=== PATIENT | male | born 1980 | race Caucasian/White ===

== ENCOUNTER 2017-03-16 23:50 | Inpatient (IN) | payer BC ==
[~2017-03-16] VITALS: Ht 188 cm; Wt 174.6 kg
[2017-03-16 23:53] VITALS: BP_SYST 189
[2017-03-17] MEDS ORDERED: LIDOCAINE VISCOUS 2%, 15 ML UDC MM ONE (00:15)
[2017-03-17] MEDS ORDERED: MORPHINE 2 MG/ML INJ. SYRINGE IM ONE (00:30)
[2017-03-17] MEDS ORDERED: fentaNYL CITRATE/PF 100 MCG/2 ML AMP IM ONE (01:30)
[2017-03-17] MEDS ORDERED: NACL 0.9% 1,000 ML IV ONE (02:15)
[2017-03-17] MEDS ORDERED: fentaNYL CITRATE/PF 100 MCG/2 ML AMP IVP ONE (02:15)
[2017-03-17] MEDS ORDERED: PIPERACILLIN/TAZO 3.375 GM in NS 50 ML IV ONE (02:15)
[2017-03-17] MEDS ORDERED: PIPERACILLIN/TAZOBACTAM 3.375 GM/VIAL (ZOSYN) IV ONE (02:40)
[2017-03-17 02:47] LABS: BASOPHILS # (AUTO) 0.2 K/uL (0.0-0.2); BASOPHILS % (AUTO) 1.8 % (0.0-2.0); EOSINOPHILS # (AUTO) 0.1 K/uL (0.0-0.4); EOSINOPHILS % (AUTO) 0.5 % (0.0-4.0); HEMATOCRIT 49.2 % (36-54); HEMOGLOBIN 16.5 g/dL (14.0-18.0); LYMPHOCYTES # (AUTO) 1.5 K/uL (1.0-5.5); LYMPHOCYTES % (AUTO) 11.7 % (20.5-51.5); MEAN CORPUSCULAR HEMOGLOBIN 30 pg (27-31); MEAN CORPUSCULAR HGB CONC 34 % (32-36); MEAN CORPUSCULAR VOLUME 88 fL (79.0-98.0); MONOCYTES # (AUTO) 0.8 K/uL (0.0-1.0); NEUTROPHILS # (AUTO) 10.4 K/uL (1.8-7.7); PLATELET COUNT (AUTO) 267 K/uL (130-430); RED BLOOD CELL COUNT(AUTO) 5.56 MIL/uL (4.2-6.2)
[2017-03-17] MEDS ORDERED: NACL 0.9% 1,000 ML IV SCH (02:50)
[2017-03-17 02:56] LABS: CALCIUM 9.6 mg/dL (8.4-11.0); CREATININE 0.98 mg/dL (0.55-1.30); POTASSIUM 4.1 mmol/L (3.5-5.1)
[2017-03-17 02:59] LABS: INR 1.1 (0.80-1.20); PROTHROMBIN TIME 10.7 SECS (9.5-12.5)
[2017-03-17] MEDS ORDERED: HYDR-1189 PO (02:59)
[2017-03-17] MEDS ORDERED: IBUP-1480 PO (02:59)
[2017-03-17 03:12] LABS: ALBUMIN 4.2 g/dL (3.4-4.8); TOTAL BILIRUBIN 2.2 mg/dL (0.0-1.0)
[2017-03-17 03:14] VITALS: BP_SYST 163
[2017-03-17] MEDS ORDERED: VANCOMYCIN HCL 1,000 MG in NS 250 ML IV ONE (04:00)
[2017-03-17] MEDS ORDERED: VANCOMYCIN HCL 1000 MG/VIAL IV ONE (04:00)
[2017-03-17] MEDS ORDERED: MORPHINE 2 MG/ML INJ. SYRINGE IVP PRN ×3 (04:15→09:15)
[2017-03-17] MEDS ORDERED: MORPHINE 2 MG/ML INJ. SYRINGE ONE (04:16)
[2017-03-17] MEDS ORDERED: MORPHINE 4 MG/ML INJ. SYRINGE ONE (06:44)
[2017-03-17] MEDS: MORPHINE 4 MG/ML INJ. SYRINGE IVP PRN ×5 (07:33→23:50)
[2017-03-17] MEDS ORDERED: ZOLPIDEM TARTRATE 5 MG TABLET PO PRN (09:15)
[2017-03-17] MEDS ORDERED: LORazepam 2 MG/ML VIAL IVP PRN (09:15)
[2017-03-17] MEDS ORDERED: HYDROmorphone 2 MG/ML VIAL IVP PRN (09:15)
[2017-03-17] MEDS ORDERED: DOCUSATE SODIUM 100 MG CAPSULE PO PRN (09:15)
[2017-03-17] MEDS ORDERED: ACETAMINOPHEN 325 MG TABLET PO PRN (09:15)
[2017-03-17] MEDS ORDERED: ONDANSETRON HCL 4 MG/2 ML VIAL IVP PRN (09:15)
[2017-03-17] MEDS ORDERED: POTASSIUM CHLORIDE 20 MEQ TAB.PRT.SR PO PRN (09:15)
[2017-03-17] MEDS ORDERED: DEXTROSE 50% JECT 50 ML DISP.SYRIN IVP PRN (09:15)
[2017-03-17] MEDS: PIPERACILLIN/TAZO 3.375/DEX-IS 50 ML IV SCH ×4 (09:15→23:49)
[2017-03-17] MEDS ORDERED: MAGNESIUM SULFATE 50 ML IV PRN (09:15)
[2017-03-17] MEDS ORDERED: D5NS 1,000 ML IV SCH (10:15)
[2017-03-17] MEDS ORDERED: METOPROLOL TARTRATE 50 MG TABLET PO ONE (10:30)
[2017-03-17] MEDS: NACL 0.9% 1,000 ML IV SCH ×2 (10:30→20:56)
[2017-03-17] MEDS: INSULIN ASPART 100 UNITS/ML, 10 ML VIAL (NovoLOG) SUBCUT PRN ×3 (12:12→20:42)
[2017-03-17 12:50] VITALS: BP_SYST 146
[2017-03-17] MEDS: CLINDAMYCIN 600 MG in D5W 50 ML IV SCH ×3 (12:50→23:48)
[2017-03-17] MEDS: VANCOMYCIN HCL 2,000 MG in NS 500 ML IV SCH ×2 (13:27→20:28)
[2017-03-17 16:06] LABS: BARBITURATE, URINE NEGATIVE (NEG <=200); BENZODIAZEPINE, URINE NEGATIVE (NEG <=150); METHAMPHETAMINES SCREEN,URINE NEGATIVE (NEG <=500); URINE AMPHETAMINE NEGATIVE (NEG <=500); URINE METHADONE NEGATIVE (NEG <=200)
[2017-03-17 16:07] LABS: CANNABINOID, URINE NEGATIVE (NEG <=50); COCAINE, URINE NEGATIVE (NEG <=150); OPIATE, URINE POSITIVE (NEG <=100); PHENCYCLIDINE SCREEN,URINE NEGATIVE (NEG <=25); UR TRICYCLIC ANTIDEPRESSANTS NEGATIVE (NEG <=300); URINE OXYCODONE SCREEN NEGATIVE (NEG <=100); URINE PROPOXYPHENE SCREEN NEGATIVE (NEG <=300)
[2017-03-17] MEDS ORDERED: METOPROLOL TARTRATE 5 MG/5 ML VIAL IVP PRN (16:15)
[2017-03-17 16:18] VITALS: BP_SYST 144
[2017-03-17 19:57] VITALS: BP_SYST 148
[2017-03-17] MEDS: METOPROLOL TARTRATE 50 MG TABLET PO SCH (20:31)
[2017-03-17] MEDS ORDERED: methylPREDNISolone SOD SUCC/PF 62.5 MG/ML VIAL IVP SCH (21:00)
[2017-03-17 23:54] VITALS: BP_SYST 143
[2017-03-18] MEDS: VANCOMYCIN HCL 2,000 MG in NS 500 ML IV SCH ×2 (03:48→12:17)
[2017-03-18 05:00] VITALS: BP_SYST 149
[2017-03-18] MEDS: PIPERACILLIN/TAZO 3.375/DEX-IS 50 ML IV SCH ×4 (05:40→23:07)
[2017-03-18] MEDS: CLINDAMYCIN 600 MG in D5W 50 ML IV SCH ×2 (05:40→12:08)
[2017-03-18] MEDS: INSULIN ASPART 100 UNITS/ML, 10 ML VIAL (NovoLOG) SUBCUT PRN ×4 (05:49→22:19)
[2017-03-18] MEDS: NACL 0.9% 1,000 ML IV SCH ×2 (05:51→17:31)
[2017-03-18 07:13] LABS: BASOPHILS % (AUTO) 0.2 % (0.0-2.0); HEMATOCRIT 42.9 % (36-54); HEMOGLOBIN 14.3 g/dL (14.0-18.0); LYMPHOCYTES # (AUTO) 1.1 K/uL (1.0-5.5); LYMPHOCYTES % (AUTO) 8.3 % (20.5-51.5); MEAN CORPUSCULAR HEMOGLOBIN 30 pg (27-31); MEAN CORPUSCULAR HGB CONC 33 % (32-36); MEAN CORPUSCULAR VOLUME 89 fL (79.0-98.0); MONOCYTES # (AUTO) 0.3 K/uL (0.0-1.0); NEUTROPHILS # (AUTO) 11.8 K/uL (1.8-7.7); NEUTROPHILS % (AUTO) 89.5 % (40.0-70.0); PLATELET COUNT (AUTO) 258 K/uL (130-430); RED BLOOD CELL COUNT(AUTO) 4.82 MIL/uL (4.2-6.2); WHITE BLOOD COUNT (AUTO) 13.1 K/uL (4.8-10.8)
[2017-03-18 07:26] LABS: CALCIUM 9.5 mg/dL (8.4-11.0); CREATININE 0.89 mg/dL (0.55-1.30); POTASSIUM 4.1 mmol/L (3.5-5.1)
[2017-03-18 08:25] VITALS: BP_SYST 137
[2017-03-18] MEDS: METOPROLOL TARTRATE 50 MG TABLET PO SCH ×3 (09:00→21:00)
[2017-03-18 11:33] VITALS: BP_SYST 137
[2017-03-18 15:29] VITALS: BP_SYST 140
[2017-03-18] MEDS: MORPHINE 4 MG/ML INJ. SYRINGE IVP PRN ×2 (18:11→22:25)
[2017-03-18 20:00] VITALS: BP_SYST 137; BP_SYST 156
[2017-03-19] VITALS: BP_SYST 141
[2017-03-19] MEDS: NACL 0.9% 1,000 ML IV SCH ×3 (02:30→17:17)
[2017-03-19] MEDS: MORPHINE 4 MG/ML INJ. SYRINGE IVP PRN ×6 (02:40→23:36)
[2017-03-19] MEDS: PIPERACILLIN/TAZO 3.375/DEX-IS 50 ML IV SCH ×4 (06:41→23:37)
[2017-03-19] MEDS: INSULIN ASPART 100 UNITS/ML, 10 ML VIAL (NovoLOG) SUBCUT PRN ×4 (06:50→20:28)
[2017-03-19 07:01] LABS: CALCIUM 9.2 mg/dL (8.4-11.0); CREATININE 0.95 mg/dL (0.55-1.30); POTASSIUM 3.9 mmol/L (3.5-5.1)
[2017-03-19 08:00] VITALS: BP_SYST 145
[2017-03-19 08:02] LABS: BASOPHILS # (AUTO) 0.1 K/uL (0.0-0.2); BASOPHILS % (AUTO) 0.4 % (0.0-2.0); EOSINOPHILS % (AUTO) 0.3 % (0.0-4.0); HEMATOCRIT 40.3 % (36-54); HEMOGLOBIN 13.5 g/dL (14.0-18.0); LYMPHOCYTES # (AUTO) 2.2 K/uL (1.0-5.5); LYMPHOCYTES % (AUTO) 17.1 % (20.5-51.5); MEAN CORPUSCULAR HEMOGLOBIN 29 pg (27-31); MEAN CORPUSCULAR HGB CONC 34 % (32-36); MEAN CORPUSCULAR VOLUME 88 fL (79.0-98.0); MONOCYTES # (AUTO) 1.1 K/uL (0.0-1.0); MONOCYTES % (AUTO) 8.7 % (1.7-9.3); NEUTROPHILS # (AUTO) 9.2 K/uL (1.8-7.7); NEUTROPHILS % (AUTO) 73.5 % (40.0-70.0); PLATELET COUNT (AUTO) 278 K/uL (130-430); RED BLOOD CELL COUNT(AUTO) 4.61 MIL/uL (4.2-6.2); RED CELL DISTRIBUTION WIDTH 12.9 % (9.0-15.0); WHITE BLOOD COUNT (AUTO) 12.6 K/uL (4.8-10.8)
[2017-03-19] MEDS: LISINOPRIL 10 MG TABLET (PRINIVIL) PO SCH (09:55)
[2017-03-19 11:33] VITALS: BP_SYST 138
[2017-03-19] MEDS ORDERED: IOHEXOL 100 ML IV ONE (13:41)
[2017-03-19 16:00] VITALS: BP_SYST 145
[2017-03-19 19:30] VITALS: BP_SYST 141
[2017-03-19 23:52] VITALS: BP_SYST 149
[2017-03-20] MEDS ORDERED: LIDOCAINE/EPI 1% 1:100000 20 ML VIAL INJ ONE ×2 (03:22→06:30)
[2017-03-20] MEDS: MORPHINE 4 MG/ML INJ. SYRINGE IVP PRN ×3 (03:33→13:10)
[2017-03-20] MEDS: NACL 0.9% 1,000 ML IV SCH (04:28)
[2017-03-20 04:43] VITALS: BP_SYST 132
[2017-03-20] MEDS: PIPERACILLIN/TAZO 3.375/DEX-IS 50 ML IV SCH ×3 (06:08→17:31)
[2017-03-20 06:33] LABS: BASOPHILS # (AUTO) 0.1 K/uL (0.0-0.2); BASOPHILS % (AUTO) 0.7 % (0.0-2.0); EOSINOPHILS # (AUTO) 0.1 K/uL (0.0-0.4); EOSINOPHILS % (AUTO) 0.9 % (0.0-4.0); HEMOGLOBIN 12.9 g/dL (14.0-18.0); LYMPHOCYTES # (AUTO) 2.1 K/uL (1.0-5.5); LYMPHOCYTES % (AUTO) 24.1 % (20.5-51.5); MEAN CORPUSCULAR HEMOGLOBIN 30 pg (27-31); MEAN CORPUSCULAR HGB CONC 34 % (32-36); MEAN CORPUSCULAR VOLUME 89 fL (79.0-98.0); MONOCYTES # (AUTO) 0.6 K/uL (0.0-1.0); MONOCYTES % (AUTO) 7.4 % (1.7-9.3); NEUTROPHILS # (AUTO) 5.8 K/uL (1.8-7.7); NEUTROPHILS % (AUTO) 66.9 % (40.0-70.0); PLATELET COUNT (AUTO) 274 K/uL (130-430); RED BLOOD CELL COUNT(AUTO) 4.29 MIL/uL (4.2-6.2); RED CELL DISTRIBUTION WIDTH 12.7 % (9.0-15.0); WHITE BLOOD COUNT (AUTO) 8.7 K/uL (4.8-10.8)
[2017-03-20 06:48] LABS: CALCIUM 8.9 mg/dL (8.4-11.0); CREATININE 0.89 mg/dL (0.55-1.30); POTASSIUM 3.7 mmol/L (3.5-5.1)
[2017-03-20] MEDS: LISINOPRIL 10 MG TABLET (PRINIVIL) PO SCH (09:00)
[2017-03-20 09:41] VITALS: BP_SYST 147
[2017-03-20] MEDS: D5NS 1,000 ML IV SCH ×2 (11:05→23:50)
[2017-03-20 11:45] VITALS: BP_SYST 147
[2017-03-20] MEDS: INSULIN ASPART 100 UNITS/ML, 10 ML VIAL (NovoLOG) SUBCUT PRN ×3 (12:13→20:44)
[2017-03-20 16:09] VITALS: BP_SYST 151
[2017-03-20 19:45] VITALS: BP_SYST 154
[2017-03-21] MEDS: PIPERACILLIN/TAZO 3.375/DEX-IS 50 ML IV SCH ×5 (00:19→23:46)
[2017-03-21 00:25] VITALS: BP_SYST 155
[2017-03-21 04:29] VITALS: BP_SYST 138
[2017-03-21] MEDS: INSULIN ASPART 100 UNITS/ML, 10 ML VIAL (NovoLOG) SUBCUT PRN ×3 (06:10→20:55)
[2017-03-21 06:37] LABS: BASOPHILS # (AUTO) 0.1 K/uL (0.0-0.2); BASOPHILS % (AUTO) 0.7 % (0.0-2.0); EOSINOPHILS # (AUTO) 0.2 K/uL (0.0-0.4); EOSINOPHILS % (AUTO) 2.8 % (0.0-4.0); HEMATOCRIT 38.6 % (36-54); HEMOGLOBIN 13.1 g/dL (14.0-18.0); LYMPHOCYTES # (AUTO) 2.3 K/uL (1.0-5.5); LYMPHOCYTES % (AUTO) 30.7 % (20.5-51.5); MEAN CORPUSCULAR HEMOGLOBIN 30 pg (27-31); MEAN CORPUSCULAR HGB CONC 34 % (32-36); MEAN CORPUSCULAR VOLUME 88 fL (79.0-98.0); MONOCYTES # (AUTO) 0.5 K/uL (0.0-1.0); MONOCYTES % (AUTO) 6.3 % (1.7-9.3); NEUTROPHILS # (AUTO) 4.3 K/uL (1.8-7.7); NEUTROPHILS % (AUTO) 59.5 % (40.0-70.0); PLATELET COUNT (AUTO) 305 K/uL (130-430); RED CELL DISTRIBUTION WIDTH 12.3 % (9.0-15.0); WHITE BLOOD COUNT (AUTO) 7.4 K/uL (4.8-10.8)
[2017-03-21 06:55] LABS: CREATININE 0.91 mg/dL (0.55-1.30); POTASSIUM 3.7 mmol/L (3.5-5.1)
[2017-03-21] MEDS: D5NS 1,000 ML IV SCH (07:44)
[2017-03-21 08:00] VITALS: BP_SYST 158
[2017-03-21] MEDS: LISINOPRIL 10 MG TABLET (PRINIVIL) PO SCH (09:02)
[2017-03-21 12:26] VITALS: BP_SYST 150
[2017-03-21 16:41] VITALS: BP_SYST 144
[2017-03-21 19:08] VITALS: BP_SYST 139
[2017-03-22 00:59] VITALS: BP_SYST 146
[2017-03-22] MEDS: PIPERACILLIN/TAZO 3.375/DEX-IS 50 ML IV SCH ×2 (06:04→11:39)
[2017-03-22 06:10] VITALS: BP_SYST 137
[2017-03-22] MEDS: INSULIN ASPART 100 UNITS/ML, 10 ML VIAL (NovoLOG) SUBCUT PRN ×2 (06:10→11:37)
[2017-03-22 07:28] LABS: BASOPHILS # (AUTO) 0.1 K/uL (0.0-0.2); BASOPHILS % (AUTO) 0.8 % (0.0-2.0); EOSINOPHILS # (AUTO) 0.3 K/uL (0.0-0.4); EOSINOPHILS % (AUTO) 3.6 % (0.0-4.0); HEMATOCRIT 40.5 % (36-54); HEMOGLOBIN 13.3 g/dL (14.0-18.0); LYMPHOCYTES # (AUTO) 2.4 K/uL (1.0-5.5); LYMPHOCYTES % (AUTO) 31.1 % (20.5-51.5); MEAN CORPUSCULAR HEMOGLOBIN 29 pg (27-31); MEAN CORPUSCULAR HGB CONC 33 % (32-36); MEAN CORPUSCULAR VOLUME 88 fL (79.0-98.0); MONOCYTES # (AUTO) 0.5 K/uL (0.0-1.0); MONOCYTES % (AUTO) 6.1 % (1.7-9.3); NEUTROPHILS # (AUTO) 4.4 K/uL (1.8-7.7); NEUTROPHILS % (AUTO) 58.4 % (40.0-70.0); PLATELET COUNT (AUTO) 330 K/uL (130-430); RED BLOOD CELL COUNT(AUTO) 4.63 MIL/uL (4.2-6.2); RED CELL DISTRIBUTION WIDTH 12.3 % (9.0-15.0); WHITE BLOOD COUNT (AUTO) 7.7 K/uL (4.8-10.8)
[2017-03-22 07:56] LABS: CALCIUM 9.3 mg/dL (8.4-11.0); CREATININE 0.88 mg/dL (0.55-1.30); POTASSIUM 3.4 mmol/L (3.5-5.1)
[2017-03-22] MEDS: LISINOPRIL 10 MG TABLET (PRINIVIL) PO SCH (08:20)
[2017-03-22 08:26] VITALS: BP_SYST 145
[2017-03-22] MEDS ORDERED: IBUP-1480 PO (11:54)
[2017-03-22] MEDS ORDERED: SULF1TAB48 PO (11:54)
[2017-03-22] MEDS ORDERED: METF-304 PO (11:54)
[2017-03-22] MEDS ORDERED: LISI10TA5 PO (11:57)
[2017-03-22 14:03] VITALS: BP_SYST 142
[2017-03-22 15:36] VITALS: BP_SYST 142
== END 2017-03-22 14:40 | disposition home or self-care (01) | DRG 854 ==
LOC: SED 23:50 → SMU 03-17 02:50 → STU 03-17 10:15 → SMU 03-20 21:46
PROVIDERS: ADMIT General Practice; ATTEND General Practice
PROC: 0C9P3ZX Drainage of Tonsils, Percutaneous Approach, Diagnostic (ICD-10-PCS; principal; 2017-03-20)
DX: A41.9 Sepsis, unspecified organism (principal); E87.1 Hypo-osmolality and hyponatremia; E11.65 Type 2 diabetes mellitus with hyperglycemia; J36 Peritonsillar abscess; K12.2 Cellulitis and abscess of mouth; L02.11 Cutaneous abscess of neck; Z68.42 Body mass index [BMI] 45.0-49.9, adult; E66.01 Morbid (severe) obesity due to excess calories; I10 Essential (primary) hypertension; G47.30 Sleep apnea, unspecified; Z79.84 Long term (current) use of oral hypoglycemic drugs; Z79.899 Other long term (current) drug therapy
CPT/HCPCS: 36415; 70490; 70491-TC; 71010; 80048; 80053; 80202-TC; 80307; 82962; 83605; 83735-TC; 85025; 85610-TC; 85730-TC; 87040-TC; 87081; 96365; 96372; 96375; 99285; J1170; J1815; J2001; J2270; J2543; J2930; J3010; J3370; J3490; J7030; J7040; J7042; J7050; J7060; Q9967

== ENCOUNTER 2020-05-10 05:44 | Inpatient (IN) | payer BC, SELFPAY ==
[~2020-05-10] VITALS: Ht 188 cm; Wt 165.6 kg
[~2020-05-10 05:44] MED LIST: HYDR-1189 PO; IBUP-1970 PO; LISI10TA5 PO; METF-380 PO; SULF1TAB48 PO
[2020-05-10 05:53] VITALS: BP_SYST 133
--- NOTE | 2020-05-10 05:53 | NUR ---
Patient to ER TENT for evaluation.
--- NOTE | 2020-05-10 06:00 | NUR ---
PATIENT REPORTS HE TESTED COVID POSITIVE ON 05/06/20, WAS TESTED AT [facility]. PATIENT STATES HE WAS PRESCRIBED A ZPAK AND PREDNISONE BY [facility] AND WAS PRESCRIBED BY HIS PMD PROMETHAZINE AND AN INHALER. PATIENT IS CURRENTLY COMPLAINING OF DRY CONSTANT COUGH THAT MAKES IT DIFFICULT TO SLEEP. PATIENT IS CURRENTLY SATURATING AT 96% ON RA. PATIENT IS SPEAKING FULL SENTENCES. NO ACUTE DISTRESS NOTED AT THIS TIME.
--- NOTE | 2020-05-10 06:36 | NUR ---
ROSALINDA PATINO IN TENT examining patient.
--- NOTE | 2020-05-10 06:36 | NUR ---
Rosey foley in EDM - 05/10/20 at 0750 by SDEDCJM ROSALINDA PATINO at bedside examining patient.
--- NOTE | 2020-05-10 07:46 | NUR ---
Patient will be admitted to care of DR. GILLIS. Admitted to MED SURG unit. BED PLACEMENT PENDING
[2020-05-10 08:28] LABS: BASOPHILS % (AUTO) 0.3 % (0.0-2.0); HEMATOCRIT 42.7 % (36-54); LYMPHOCYTES # (AUTO) 0.9 K/uL (1.0-5.5); MEAN CORPUSCULAR HEMOGLOBIN 30 pg (27-31); MEAN CORPUSCULAR HGB CONC 35 % (32-36); MEAN CORPUSCULAR VOLUME 85 fL (79.0-98.0); MONOCYTES # (AUTO) 0.3 K/uL (0.0-1.0); MONOCYTES % (AUTO) 6.1 % (1.7-9.3); NEUTROPHILS # (AUTO) 3.7 K/uL (1.8-7.7); NEUTROPHILS % (AUTO) 75.6 % (40.0-70.0); PLATELET COUNT (AUTO) 191 K/uL (130-430); RED BLOOD CELL COUNT(AUTO) 5.02 MIL/uL (4.2-6.2); RED CELL DISTRIBUTION WIDTH 13.9 % (9.0-15.0); WHITE BLOOD COUNT (AUTO) 4.9 K/uL (4.8-10.8)
--- NOTE | 2020-05-10 08:30 | NUR ---
Pt A&Ox4, VSS, respirations even and unlabored.
[2020-05-10 08:47] LABS: CALCIUM 8.3 mg/dL (8.4-11.0); CREATININE 0.87 mg/dL (0.55-1.30); POTASSIUM 4.7 mmol/L (3.5-5.1)
[2020-05-10 08:53] LABS: ALBUMIN 3.3 g/dL (3.4-4.8); TOTAL BILIRUBIN 0.8 mg/dL (0.0-1.0)
[2020-05-10 10:20] VITALS: BP_SYST 147
--- NOTE | 2020-05-10 10:20 | NUR ---
Patient does not wish to proceed with medical care recommended by Dr. English. Patient given information related to possible complications, up to and including , which could occur as a result of leaving hospital at this time. Patient verbalizes understanding of risks involved leaving against medical advice. Patient has signed AMA form. Given prescriptions for Zinc Sulfate and Hydroxychloroquine Sulfate. Advised to return to ED if symptoms worsen and/or follow up with PCP.
--- NOTE | 2020-05-10 22:31 | NUR ---
CALLED ADMITTING DEPARTMENT I SPOKE WITH JENIFFER I ASKED TO DC THIS PATIENT LEFT AMA AT 1020 THIS MORNING FROM ER SHE SAID CAN NOT DC PATIENT FROM THE SYSTEM. ONLY K[facility]IE CAN BUT SHE COMES AT MIDNIGHT TOO LATE FOR ME BECAUSE I GIVE CENSUS TO AT 2330 SO I CALL [facility] LEYDA EXPLAINED THE SITUATION SHE GAVE THE OK TO DISCHARGE PATIENT
== END 2020-05-10 10:20 | disposition left against medical advice (07) | DRG 177 ==
LOC: SED 05:44 → SMU 07:41
PROVIDERS: ADMIT Preventive Medicine Preventive Medicine/Occupational Environmental Medicine; ATTEND Preventive Medicine Preventive Medicine/Occupational Environmental Medicine
DX: U07.1 COVID-19 (principal); J12.89 Other viral pneumonia; E87.1 Hypo-osmolality and hyponatremia; E11.65 Type 2 diabetes mellitus with hyperglycemia; E83.51 Hypocalcemia; E88.09 Other disorders of plasma-protein metabolism, not elsewhere classified; I10 Essential (primary) hypertension; R74.01 Elevation of levels of liver transaminase levels; Z53.29 Procedure and treatment not carried out because of patient's decision for other reasons
CPT/HCPCS: 36415; 71045; 80053; 85025; 99285; U0003

== ENCOUNTER 2023-04-05 11:34 | Emergency (ER) | payer BC ==
[~2023-04-05] VITALS: Ht 188 cm; Wt 142.9 kg
[~2023-04-05 11:34] MED LIST changes: -HYDR-1189 PO; +HYDR-3919 PO; +LISI10TA29 PO; -LISI10TA5 PO
[2023-04-05] MEDS ORDERED: HYDROcodone/ACETAMIN 5-325 MG TAB (NORCO/ VICODIN) PO ONE (12:00)
[2023-04-05 12:07] VITALS: BP_SYST 164; PULSE 88; RESP 18; TEMP 97.2; O2SAT 97
[2023-04-05] MEDS ORDERED: TRAM50TA2 PO (13:27)
[2023-04-05] MEDS ORDERED: IBUP-1971 PO (13:27)
[2023-04-05 15:10] VITALS: BP_SYST 151; PULSE 76; RESP 21; TEMP 97.4; O2SAT 100
== END 2023-04-05 15:11 | disposition home or self-care (01) ==
LOC: SED 11:34
DX: S86.092A Other specified injury of left Achilles tendon, initial encounter (principal); E11.9 Type 2 diabetes mellitus without complications; I10 Essential (primary) hypertension; Z79.899 Other long term (current) drug therapy; W21.03XA Struck by baseball, initial encounter; Y93.64 Activity, baseball; Y92.89 Other specified places as the place of occurrence of the external cause; Y99.8 Other external cause status
CPT/HCPCS: 99283